=== PATIENT | female | born 1985 | race African-American/Black ===

== ENCOUNTER 2017-05-11 07:45 | Day surgery (SDC) | payer BC ==
[2017-05-08 16:14] VITALS: BMI 29.1
--- NOTE | 2017-05-11 08:42 | HP ---
History & Physical Update - History History: No Change - Physical Physical: No Change - Assessment Assessment: No Change - Plan Plan: No Change
[2017-05-11] MEDS ORDERED: oxyCODONE HCL 5 MG TABLET PO PRN (09:08)
[2017-05-11] MEDS ORDERED: ONDANSETRON 4 MG/2 ML VIAL IVPUSH PRN (09:08)
[2017-05-11] MEDS ORDERED: PROMETHAZINE HCL 25 MG/1 ML VIAL IVPUSH PRN (09:08)
[2017-05-11] MEDS ORDERED: LACTATED RINGERS SOLUTION 1,000 ML IV SCH (09:15)
[2017-05-11] MEDS ORDERED: MIDAZOLAM HCL 2 MG/2 ML SINGLE DOSE VIAL ONE ×2 (09:30)
[2017-05-11] MEDS ORDERED: PROPOFOL 20 ML ONE ×2 (09:34→09:35)
[2017-05-11] MEDS ORDERED: SUCCINYLCHOLINE CHLORIDE 200 MG/10 ML VIAL ONE (09:36)
[2017-05-11] MEDS ORDERED: KETOROLAC TROMETHAMINE 30 MG/1 ML VIAL ONE (09:47)
[2017-05-11] MEDS ORDERED: DEXAMETHASONE SOD PHOSPHATE 4 MG/1 ML VIAL ONE (09:47)
[2017-05-11] MEDS ORDERED: BUPIVACAINE HCL/PF 0.5% (5MG/ML) 10 ML VIAL IJ ONE (10:16)
--- NOTE | 2017-05-11 10:31 | OP ---
Operative Note - Note: Operative Date: 05/11/17 Pre-Operative Diagnosis: 6x8cm. soft tissue tumor over right upper arm , shoulder and anterior chest wall. Operation: Excision of 6x8 cm. soft tissue tumor on right anterior arm, and shoulder. Findings: 6x8cm. soft tissue tumor deep to the deep fascia. Post-Operative Diagnosis: Same as Pre-op Surgeon: Barbara Cee Anesthesia: General Specimens Removed: Soft tissue tumor right upper arm and shoulder. Estimated Blood Loss (mls): 2 Operative Report Dictated: Yes
[2017-05-11] MEDS ORDERED: oxyCODONE HCL 5 MG TABLET ONE (11:14)
--- NOTE | 2017-05-11 12:02 | OP ---
DATE OF OPERATION: 05/11/2017 PREOPERATIVE DIAGNOSIS: An 8 cm x 6 cm soft tissue tumor on the anterior aspect of the right arm and right shoulder. POSTOPERATIVE DIAGNOSIS: An 8 cm x 6 cm soft tissue tumor on the anterior aspect of the right arm and right shoulder. OPERATIVE PROCEDURE: Excision of 8 cm x 6 cm soft tissue tumor on the anterior aspect of the right arm and shoulder. SURGEON: Gay Rossi MD ANESTHESIA: General anesthesia. OPERATIVE DESCRIPTION: This 31-year-old soft tissue tumor, which is enlarging in size, over the anterior aspect of right upper arm and shoulder. Patient was brought in for excision of the lesion. She was given general anesthesia. The area was painted and draped. Time-out was called. A crease incision was made over the inferior aspect of the lesion along a skin crease. This was deepened through the skin and subcutaneous tissue and the deep fascia. The full encapsulated tumor was then identified. This was carefully from the rest of the structures. It was dumbbell shaped, and it was completely excised. It measured about 8 cm x 6 cm. Hemostasis was achieved. There was no bleeding. The specimen was sent to Pathology. The deep fascia was approximated with buried interrupted 3-0 Vicryl sutures, the subcutaneous fat was approximated with buried 4-0 Biosyn sutures in a subcuticular fashion and followed by a running suture of 4-0 Biosyn. Dermabond was applied to close the skin edges. Patient tolerated the procedure well and was sent from the operative suite in satisfactory and stable condition. Nette ROSSI/[id number]
[2017-05-11 12:42] VITALS: BP 107/66; PULSE 68; TEMP 97.8
--- NOTE | 2017-05-14 14:13 | PATH ---
Surgical Pathology Report Patient Name: NAYELI WOODALL [facility]. Rec. #: [id number] /Age/Gender: 1985 (Age: 31) / F Account: [id number] Location: [facility] Taken: 05/11/2017 Received: 05/11/2017 Reported: 05/14/2017 Physicians: Sloan Cee M.D. Specimen(s) Received RIGHT ARM AND ANTERIOR CHEST WALL SOFT TISSUE TUMOR Clinical History Right arm and anterior chest wall soft tissue tumor Final Diagnosis SOFT TISSUE, RIGHT ARM AND ANTERIOR CHEST, EXCISION: LIPOMA. Electronically Signed Donaldo Mercedes M.D. Gross Description Received in formalin labeled "right arm and anterior chest wall soft tissue tumor," is a 6.2 x 6.0 x 1.5 cm portion of yellow, lobulated adipose tissue. Sectioning reveals homogeneous yellow, smooth fat. No areas of hemorrhage or necrosis are identified. Meat And Poultry Inspector sections are submitted in 2 cassettes. /05/11/2017 saudi05/11/2017
== END 2017-05-11 12:15 | disposition home or self-care (01) ==
LOC: JASU-SURG 07:45
PROVIDERS: ATTEND Specialist
PROC: 0JBD0ZX Excision of Right Upper Arm Subcutaneous Tissue and Fascia, Open Approach, Diagnostic (ICD-10-PCS; principal; 2017-05-11 09:30)
DX: D21.11 Benign neoplasm of connective and other soft tissue of right upper limb, including shoulder (principal)
CPT/HCPCS: 88305-TC; 94760

== ENCOUNTER 2019-02-12 22:33 | Emergency (ER) | payer BC ==
[2019-02-12 22:40] VITALS: BMI 33.3
--- NOTE | 2019-02-12 23:54 | PDOC ---
*Physical Exam - Vital Signs Last Vital Signs Temp Pulse Resp BP Pulse Ox 97.8 F 75 18 133/84 100 02/12/19 22:37 02/12/19 22:37 02/12/19 22:37 02/12/19 22:37 02/12/19 22:37 ED Treatment Course - LABORATORY CBC & Chemistry Diagram: 02/13/19 00:25 02/13/19 00:25 Medical Decision Making - Medical Decision Making 02/12/19 23:54 Patient seen by the advanced practice provider under my direct supervision. Ancillary testing reviewed as necessary. I agree with plan as outlined by the advanced practice provider. *DC/Admit/Observation/Transfer Diagnosis at time of Disposition: Headache Qualifiers: Headache type: tension-type Headache chronicity pattern: acute headache Intractability: not intractable Qualified Code(s): G44.209 - Tension-type headache, unspecified, not intractable - Discharge Dispostion Condition at time of disposition: Fair - Referrals Referrals: Vivek Yuan MD [Staff Physician] - Mireya Oliveira MD [Primary Care Provider] - - Patient Instructions Additional Instructions: Take Tylenol or Motrin as needed for headaches. Keep a diary of all food to eat and activities performed prior to headaches starting. Make an appointment with her primary doctor for reevaluation within the next week. Return to emergency department for worsening headache, blurry vision, dizziness , nausea, vomiting or any other concerns. Thank you very much for for choosing us to provide emergent health care needs. - Post Discharge Activity
[2019-02-13] MEDS ORDERED: METOCLOPRAMIDE HCL INJECTION 10 MG/2 ML VIAL IVPUSH STA (00:03)
[2019-02-13] MEDS ORDERED: SODIUM CHLORIDE 1,000 ML IV ONE (00:03)
[2019-02-13] MEDS ORDERED: ACETAMINOPHEN 1000 MG/100 ML VIAL (NON FORMULARY) IVPB ONE (00:04)
--- NOTE | 2019-02-13 00:09 | PDOC ---
History of Present Illness - General Chief Complaint: Lightheaded Stated Complaint: DIZZINESS Time Seen by Provider: 02/12/19 23:51 History Source: Patient Exam Limitations: No Limitations - History of Present Illness Initial Comments: 02/13/19 00:06 HISTORY OF PRESENT ILLNESS: 33-year-old woman he denies medical history presents emergency department for evaluation headache which has been intermittent for the past 2-3 months with recurrence today at approximately 10: 30 PM. The patient sought out care of this time she began to experience some numbness and tingling to bilateral upper extremities which is now resolved. Patient denies any fevers, chills, chest pain, shortness of breath, blurry vision, nausea or vomiting. No recent travel or sick contacts. PAST MEDICAL HISTORY: Denies past medical history SURGICAL HISTORY: Denies ALLERGIES: No known drug allergies. Shellfish REVIEW OF SYSTEMS General/Constitutional: Denies fever or chills. Denies weakness, weight change. HEENT: Denies change in vision. Denies ear pain or discharge. Denies sore throat. Cardiovascular: Denies chest pain or shortness of breath. Respiratory: Denies cough, wheezing, or hemoptysis. Gastrointestinal: Denies nausea, vomiting, diarrhea or constipation. Denies rectal bleeding. Genitourinary: Denies dysuria, frequency, or change in urination. Musculoskeletal: Denies joint or muscle swelling or pain. Denies neck or back pain. Skin and breasts: Denies rash or easy bruising. Neurologic: see HPI Psychiatric: Denies depression or anxiety. Endocrine: Denies increased thirst. Denies abnormal weight change. Hematologic/Lymphatic: Denies anemia, easy bleeding, or history of blood clots. Allergic/Immunologic: Denies hives or skin allergy. Denies latex allergy. PHYSICAL EXAM General Appearance: Well-appearing, appropriately dressed. No apparent distress , no intoxication. HEENT: EOMI, PERRLA, normal ENT inspection, normal voice, TMs normal, pharynx normal. No conjunctival pallor. No photophobia, scleral icterus. Neck: Supple. Trachea midline. No tenderness, rigidity, carotid bruit, stridor , lymphadenopathy, or thyromegaly. Respiratory/Chest: Lungs CTAB. No shortness of breath, chest tenderness, respiratory distress, accessory muscle use. No crackles, rales, rhonchi, stridor , wheezing, dullness Cardiovascular: RRR. S1, S2. No JVD, murmur, bradycardia, tachycardia. Vascular Pulses: Dorsalis-Pedis (R): 2+, Dorsalis-Pedis (L): 2+ Gastrointestinal/Abdominal: Normal bowel sounds. Abdomen soft, non-distended. No tenderness or rebound tenderness. No organomegaly, pulsatile mass, guarding, hernia, hepatomegaly, splenomegaly. Lymphatic: No adenopathy, tenderness. Musculoskeletal/Extremities: Normal inspection. FROM of all extremities, normal capillary refill. Pelvis Stable. No CVA tenderness. No tenderness to extremities, pedal edema, swelling, erythema or deformity. Integumentary: Appropriate color, dry, warm. No cyanosis, erythema, jaundice or rash Neurologic: pct II-XII intact. Fully oriented, alert. Appropriate mood/affect. Motor strength 5/5. No appreciable EOM palsy, facial droop or sensory deficit. NIHSS-0. Performs rapid alternating movements without difficulty. (-)[place]. ( -)[place]. Past History - Past Medical History Allergies/Adverse Reactions: Allergies Allergy/AdvReac Type Severity Reaction Status Date / Time shellfish derived Allergy Hives Verified 02/12/19 22:40 Home Medications: Ambulatory Orders Calcium Phosphate Trib/Vit D3 [Calcium + Vitamin D3 Gummies] 1 each PO DAILY Multivit-Min/Iron Fum/Folic AC [Medyg-Pjrvjms-Rsypeuxk Tablet] 1 each PO DAILY 05/08/17 Anemia: No Asthma: No Cancer: No Cardiac Disorders: No CVA: No COPD: No CHF: No Dementia: No Diabetes: No GI Disorders: No Disorders: No HTN: No Hypercholesterolemia: No Liver Disease: No Seizures: No Thyroid Disease: No - Surgical History Gastric Stapling: Yes (SLEEVE) - Suicide/Smoking/Psychosocial Hx Smoking History: Never smoked Hx Alcohol Use: Yes (occsional) Substance Use Type: None Hx Substance Use Treatment: No *Physical Exam - Vital Signs Last Vital Signs Temp Pulse Resp BP Pulse Ox 97.8 F 75 18 133/84 100 02/12/19 22:37 02/12/19 22:37 02/12/19 22:37 02/12/19 22:37 02/12/19 22:37 Heart Score/ECG Review - History History: Slightly suspicious - Electrocardiogram EKG: Normal - Age Age: </= 45 - Risk Factors Based on the list above the patient has:: No risk factors known - Troponin Troponin: </= normal limit - Score Heart Score - Total: 0 - ECG Intrepretation Rhythm: Regular Rhythm - [place]: Normal ED Treatment Course - LABORATORY CBC & Chemistry Diagram: 02/13/19 00:25 02/13/19 00:25 Medical Decision Making - Medical Decision Making 02/13/19 00:09 A/P: 33-year-old woman with headache and bilateral upper extremity tingling Differential diagnosis includes but is not limited to migraines, CVA/TIA, anxiety, neoplasm, anemia, ophthalmologic etiology, ACS, arrhythmia EKG Labs Urine Normal saline 1 L bolus Reglan 10 mg IV Benadryl 25 mg IV Tylenol 1 g IV Toradol pending testing 02/13/19 01:49 Laboratory testing is notable for WBC of 3.5. Chemistries are unremarkable. Initial troponin is less than 0.02. EKG sinus rhythm rate of 81. Normal intervals present. Normal axis noted. No ischemic changes noted. Urinalysis is unremarkable. Patient reports she is currently pain-free. I'll discharge the patient home to follow-up with her primary doctor. I discussed the physical exam findings, ancillary test results and final diagnoses with the patient. I answered all of the patient's questions. The patient was satisfied with the care received and felt comfortable with the discharge plan and treatment plan. The patient will call their primary care physician within 24 hours to arrange follow-up and will return to the Emergency Department with any new, persistent or worsening symptoms. 02/13/19 02:21 *DC/Admit/Observation/Transfer Diagnosis at time of Disposition: Headache Qualifiers: Headache type: tension-type Headache chronicity pattern: acute headache Intractability: not intractable Qualified Code(s): G44.209 - Tension-type headache, unspecified, not intractable - Discharge Dispostion Condition at time of disposition: Fair Decision to Admit order: No - Referrals Referrals: Mireya Oliveira MD [Primary Care Provider] - Vivek Yuan MD [Staff Physician] - - Patient Instructions Additional Instructions: Take Tylenol or Motrin as needed for headaches. Keep a diary of all food to eat and activities performed prior to headaches starting. Make an appointment with her primary doctor for reevaluation within the next week. Return to emergency department for worsening headache, blurry vision, dizziness , nausea, vomiting or any other concerns. Thank you very much for for choosing us to provide emergent health care needs. - Post Discharge Activity
[2019-02-13] MEDS ORDERED: ACETAMINOPHEN INJECTION 100 ML IVPB ONE (00:12)
[2019-02-13] MEDS ORDERED: METOCLOPRAMIDE HCL INJECTION 10 MG/2 ML VIAL ONE (00:12)
[2019-02-13 00:42] LABS: BASO % 0.9 % (0-2.0); EOS % 1.6 % (0-4.5); HEMATOCRIT 35.2 % (32.4-45.2); HEMOGLOBIN 11.4 GM/dL (10.7-15.3); LYMPH % 44.1 % (8-40); MCHC 32.3 g/dl (32.0-36.0); MEAN CELL VOLUME 92.7 fl (80-96); MEAN PLT VOLUME 9.6 fl (7.5-11.1); MONO % 10.3 % (3.8-10.2); NEUT % 43.1 % (42.8-82.8); PLATELET COUNT 299 K/MM3 (134-434); RDW 17.6 % (11.6-15.6); WHITE BLOOD COUNT 3.5 K/mm3 (4.0-10.0)
[2019-02-13 01:13] LABS: ALBUMIN 3.8 g/dl (3.4-5.0); ALK PHOS 42 U/L (45-117); ANION GAP 5 MMOL/L (8-16); BILIRUBIN,TOTAL 1.1 mg/dL (0.2-1); BLOOD UREA NITROGEN 11.9 mg/dL (7-18); CALCIUM 8.7 mg/dL (8.5-10.1); CHLORIDE 108 mmol/L (98-107); CO2 26 mmol/L (21-32); CREATININE 0.7 mg/dL (0.55-1.3); GLUCOSE,RANDOM 104 mg/dL (74-106); HCG,QUALITATIVE URINE Negative; POTASSIUM 4.4 mmol/L (3.5-5.1); SGOT/AST 29 U/L (15-37); SGPT/ALT 19 U/L (13-61); SODIUM 139 mmol/L (136-145); TOT PROT 7.3 g/dl (6.4-8.2)
[2019-02-13 02:13] LABS: URINE APPEARANCE CLEAR; URINE BILIRUBIN NEGATIVE (NEGATIVE); URINE COLOR YELLOW; URINE GLUCOSE (UA) NEGATIVE (NEGATIVE); URINE KETONE 1+ (NEGATIVE); URINE LEUK ESTERASE NEGATIVE (NEGATIVE); URINE NITRITE NEGATIVE (NEGATIVE); URINE PROTEIN NEGATIVE (NEGATIVE)
[2019-02-13 03:27] VITALS: BP 109/66; PULSE 73; TEMP 97.8
--- NOTE | 2019-02-13 13:39 | EKG ---
Test Reason : Blood Pressure : / mmHG Vent. Rate : 081 BPM Atrial Rate : 081 BPM P-R Int : 156 ms QRS Dur : 088 ms QT Int : 408 ms P-R-T Axes : 067 070 056 degrees QTc Int : 473 ms NORMAL SINUS RHYTHM POSSIBLE LEFT ATRIAL ENLARGEMENT BORDERLINE ECG WHEN COMPARED WITH ECG OF 23-OCT-2014 17:48, QT HAS LENGTHENED Confirmed by MARLEEN ACKERMAN, PRANAV ([id number]) on 02/13/2019 1:38:53 PM Referred By: Confirmed By:PRANAV HAWLEY MD
== END 2019-02-13 02:35 | disposition home or self-care (01) ==
LOC: JER 22:33
PROC: 3E033NZ Introduction of Analgesics, Hypnotics, Sedatives into Peripheral Vein, Percutaneous Approach (ICD-10-PCS; principal; 2019-02-12)
PROC: 3E033GC Introduction of Other Therapeutic Substance into Peripheral Vein, Percutaneous Approach (ICD-10-PCS; 2019-02-12)
PROC: 3E033GC Introduction of Other Therapeutic Substance into Peripheral Vein, Percutaneous Approach (ICD-10-PCS; 2019-02-12)
DX: G44.209 Tension-type headache, unspecified, not intractable (principal)
CPT/HCPCS: 36415; 80053; 81003; 82550; 82553; 84484; 84703; 85025; 87086; 93005; 93010; 99282-25; J0131; J7030

== ENCOUNTER 2019-06-18 14:11 | Emergency (ER) | payer BC ==
--- NOTE | 2019-06-18 14:24 | PDOC ---
Rapid Medical Evaluation Time Seen by Provider: 06/18/19 14:22 Medical Evaluation: Allergies Allergy/AdvReac Type Severity Reaction Status Date / Time shellfish derived Allergy Hives Verified 02/12/19 22:40 06/18/19 14:22 Pt c/o: intermittent sob and dizziness x 1 week, no other complaints, 19 weeks , hx of anemia , takes iron pills Pt on brief exam: lcta, vss Pt ordered for: cbc, comp, ua, orthostatic vs Pt to proceed to the ED Discharge Disposition - Diagnosis SOB (shortness of breath), Anemia, UTI (urinary tract infection) during - Discharge Dispostion Disposition: HOME Condition at time of disposition: Improved - Prescriptions Prescriptions: Nitrofurantoin Monohyd/M-Cryst [Macrobid -] 100 mg PO BID #14 capsule - Referrals Referrals: Mireya Oliveira MD [Primary Care Provider] - - Patient Instructions Printed Discharge Instructions: DI for Urinary Tract Infection (UTI), Anemia in Additional Instructions: You came into the hospital with lightheadedness and shortness of breath. You have a urinary tract infection. I have sent a prescription to your pharmacy for an antibiotic, take as advised on label. Do not stop early even if you are feeling better. Take all pills. Your blood test shows that you have anemia. Your hemoglobin was 10.0. Let your OBGYN know about your level of anemia. Please continue to take your vitamins as prescribed. Please follow up with your CUSTOM STUDIO COORDINATOR to monitor your within 3 days. Your care is not complete until you follow up. Return to the Emergency Department for increasing shortness of breath, increasing weakness, vomiting, fever, coughing up blood, chest pain, passing out or any other new, worsening or concerning symptoms. - Post Discharge Activity Work/School Note: Back to Work
[2019-06-18 14:25] VITALS: TEMP 98.1; BMI 36.2
[2019-06-18 15:34] LABS: BASO % 0.5 % (0-2.0); EOS % 1.2 % (0-4.5); HEMATOCRIT 30.7 % (32.4-45.2); LYMPH % 27.4 % (8-40); MCH 32.1 pg (25.7-33.7); MCHC 32.6 g/dl (32.0-36.0); MEAN CELL VOLUME 98.5 fl (80-96); MEAN PLT VOLUME 8.8 fl (7.5-11.1); MONO % 11.2 % (3.8-10.2); NEUT % 59.7 % (42.8-82.8); PLATELET COUNT 242 K/MM3 (134-434); RBC 3.12 M/mm3 (3.60-5.2); RDW 14.2 % (11.6-15.6); WHITE BLOOD COUNT 5.6 K/mm3 (4.0-10.0)
[2019-06-18 15:37] LABS: EPI CELLS 5.4 /HPF (0-5/HPF); HYALINE CASTS 13 /lpf (0-8); PH,URINE 7.5 (5.0-8.0); URINE APPEARANCE CLOUDY; URINE BACTERIA 616.2 /hpf (NEGATIVE); URINE BILIRUBIN NEGATIVE (NEGATIVE); URINE COLOR YELLOW; URINE GLUCOSE (UA) NEGATIVE (NEGATIVE); URINE KETONE NEGATIVE (NEGATIVE); URINE LEUK ESTERASE 3+ (NEGATIVE); URINE NITRITE NEGATIVE (NEGATIVE); URINE PROTEIN NEGATIVE (NEGATIVE); URINE RBC 1 /hpf (0-4); URINE WBC 67 /hpf (0-5)
[2019-06-18 16:00] LABS: ALBUMIN 2.8 g/dl (3.4-5.0); BILIRUBIN,TOTAL 0.4 mg/dL (0.2-1); CALCIUM 8.5 mg/dL (8.5-10.1); CREATININE 0.4 mg/dL (0.55-1.3); POTASSIUM 4.3 mmol/L (3.5-5.1)
[2019-06-18 16:35] LABS: MAGNESIUM 2.1 mg/dL (1.8-2.4)
--- NOTE | 2019-06-18 16:52 | PDOC ---
History of Present Illness - General Chief Complaint: Lightheaded Stated Complaint: 19 WK /SHORTNESS OF BREATH Time Seen by Provider: 06/18/19 14:22 History Source: Patient - History of Present Illness Initial Comments: 06/18/19 16:45 33 yo F PMH of anemia presents to Ed with new onset intermittent SOB, palpitations, accompanying her dizziness. pt is , currently 19w , LMP January 31, 2019. Pt states she usually gets intermittent dizziness when she stands or certain movements. Since last week, she has intermittent dizziness where she also feels short of breath and palpitations, she denies chest tightness. she denies pain. denies difficulty swallowing or throat swelling. denies fevers, chills, nausea, vomiting. denies recent travel. denies vaginal bleeding. Past History - Travel Traveled outside of the country in the last 30 days: No - Past Medical History Allergies/Adverse Reactions: Allergies Allergy/AdvReac Type Severity Reaction Status Date / Time shellfish derived Allergy Hives Verified 06/18/19 14:25 Home Medications: Ambulatory Orders Pnv No.95/Ferrous Fum/Folic AC [ [place]] 1 tab PO DAILY 06/18/19 Anemia: Yes Asthma: No Cancer: No Cardiac Disorders: No CVA: No COPD: No CHF: No Dementia: No Diabetes: No GI Disorders: No Disorders: No HTN: No Hypercholesterolemia: No Liver Disease: No Seizures: No Thyroid Disease: No - Surgical History Gastric Stapling: Yes (SLEEVE) - Reproductive History Is Patient Now?: Yes (19weeks) (#): 4 Para: 1 - Psycho Social/Smoking Cessation Hx Smoking History: Never smoked Information on smoking cessation initiated: No Hx Alcohol Use: No Drug/Substance Use Hx: No Substance Use Type: None Hx Substance Use Treatment: No Review of Systems - Review of Systems Able to Perform ROS?: Yes Constitutional: No: Chills, Fever HEENTM: No: Throat Pain, Throat Swelling, Difficulty Swallowing Respiratory: Yes: Shortness of Breath Cardiac (ROS): Yes: Lightheadedness, Palpitations. No: Chest Pain, Edema, Syncope, Chest Tightness ABD/GI: Yes: Constipated. No: Diarrhea, Difficulty Swallowing, Nausea, Vomiting : Yes: Discharge, Urgency. No: Burning, Dysuria, Hematuria Neurological: Yes: Headache, Dizziness Hematologic/Lymphatic: Yes: Anemia *Physical Exam - Vital Signs Last Vital Signs Temp Pulse Resp BP Pulse Ox 98.1 F 82 19 111/52 L 100 06/18/19 14:23 06/18/19 14:23 06/18/19 14:23 06/18/19 14:23 06/18/19 14:23 - Physical Exam General Appearance: Yes: Nourished, Appropriately Dressed HEENT: positive: Pharyngeal Erythema, Tonsillar Erythema (also swollen b/l ). negative: Muffled/Hoarse voice Neck: positive: Lymphadenopathy (L) (submandibular ) Respiratory/Chest: positive: Lungs Clear, Normal Breath Sounds. negative: Accessory Muscle Use Cardiovascular: positive: Regular Rhythm, Regular Rate, S1, S2, JVD Gastrointestinal/Abdominal: positive: Soft, Decreased BS. negative: Tender Extremity: positive: Swelling (L LE ). negative: Calf Tenderness, Erythema ED Treatment Course - LABORATORY CBC & Chemistry Diagram: 06/18/19 15:00 06/18/19 15:00 - ADDITIONAL ORDERS Additional order review: Laboratory Results 06/18/19 06/18/19 15:00 15:00 Sodium 138 Potassium 4.3 Chloride 107 Carbon Dioxide 26 Anion Gap 5 L BUN 8.0 Creatinine 0.4 L Est GFR (CKD-EPI)AfAm 156.40 Est GFR (CKD-EPI)NonAf 134.94 Random Glucose 82 Calcium 8.5 Phosphorus 4.0 Magnesium 2.1 Total Bilirubin 0.4 AST 19 ALT 18 Alkaline Phosphatase 34 L Total Protein 6.0 L Albumin 2.8 L Urine Color Yellow Urine Appearance Cloudy Urine pH 7.5 D Ur Specific [place] 1.020 Urine Protein Negative Urine Glucose (UA) Negative Urine Ketones Negative Urine Blood Negative Urine Nitrite Negative Urine Bilirubin Negative Urine Urobilinogen 1.0 Ur Leukocyte Esterase 3+ H Urine WBC (Auto) 67 Urine RBC (Auto) 1 Urine Casts (Auto) 13 U Epithel Cells (Auto) 5.4 Urine Bacteria (Auto) 616.2 06/18/19 15:00 RBC 3.12 L MCV 98.5 H MCHC 32.6 RDW 14.2 D MPV 8.8 Neutrophils % 59.7 D Lymphocytes % 27.4 D Monocytes % 11.2 H Eosinophils % 1.2 Basophils % 0.5 - RADIOLOGY Radiology Studies Ordered: Category Date Time Status DUPLEX VASCUL US-1 LEG [US] Stat Ultrasound 06/18/19 15:58 Taken Medical Decision Making - Medical Decision Making 06/18/19 16:56 33 yo presenting to Ed w/ intermittent sob, palpitations, dizziness -r/o anemia -r/o PE -likely anxiety, pt states that in prior had to avoid public areas and crowded spaces as would get similar symptoms. todays event occurred when she was in crowded room. currently pt asymptomatic -cbc, cmp -ekg -asymmetric leg swelling, duplex l LE to r/o dvt. D dimer -UA reveals + Leuk est, + for UTI 06/18/19 16:59 -CBC shows mild anemia : -glucose wnl 06/18/19 15:00 06/18/19 17:01 -duplex neg for DVT Discharge - Discharge Information Problems reviewed: Yes Clinical Impression/Diagnosis: SOB (shortness of breath) - Follow up/Referral Referrals: Mireya Oliveira MD [Primary Care Provider] - - Patient Discharge Instructions Patient Printed Discharge Instructions: DI for Shortness of Breath, DI for Anxiety -- Adult, DI for Dizziness-Nonvertigo Additional Instructions: You came into the hospital with dizziness and shortness of breath. You had blood tests and an ultrasound of your leg for blood clot. Your blood test shows that you have anemia. Your hemoglobin is 10.0 Please continue to take your vitamins as prescribed. Please follow up with your VAT TENDER to monitor your . If you continue to have these symptoms, or if your symptoms worsen please return to the ED. if you continue to have shortness of breath, palpitations, fever , chills, vaginal bleeding, please return to the ER. - Post Discharge Activity
[2019-06-18 17:16] LABS: INR 0.95 (0.83-1.09); PROTHROMBIN TIME (PATIENT) 11.2 SEC (9.7-13.0)
--- NOTE | 2019-06-18 17:50 | PDOC ---
Attending Attestation - Resident Resident Name: Patrizia Crane - ED Attending Attestation I have performed the following: I have examined & evaluated the patient, The case was reviewed & discussed with the resident, I agree w/resident's findings & plan, Exceptions are as noted - HPI HPI: 06/18/19 17:45 33 F , @ 19 weeks, with no PMH presents to ED with intermittent SOB. Pt states that for the past 5 days, she has been having transient episodes of SOB. She states that these episodes come on randomly, not triggered by anything. They last a few minutes at a time before resolving spontaneously. Pt notes that she also has palpitations but no chest pain associated with it. Pt also notes that her L leg has been swollen but only noticed it today. - Physicial Exam PE: 06/18/19 18:07 "GENERAL: Awake, alert, and fully oriented, in no acute distress. HEAD: No signs of trauma EYES: PERRLA, EOMI, sclera anicteric, conjunctiva clear ENT: Auricles normal inspection, hearing grossly normal, nares patent, oropharynx clear without exudates. Moist mucosa NECK: Nontender, no stepoffs, Normal ROM, supple, no lymphadenopathy, JVD, or masses LUNGS: Breath sounds equal, clear to auscultation bilaterally. No wheezes, and no crackles HEART: Regular rate and rhythm, normal S1 and S2, no murmurs, rubs or gallops ABDOMEN: Soft, nontender, normoactive bowel sounds. No guarding, no rebound. No masses EXTREMITIES: +1 edema LLE NEUROLOGICAL: Cranial nerves II through XII intact. 5/5 strength and sensation in all extremities, Normal speech, normal gait, normal cerebellar function SKIN: Warm, Dry, normal turgor, no rashes or lesions noted. - Medical Decision Making 06/18/19 18:12 33 F with intermittent SOB, also found to have asymmetric LLE swelling. Will need to r/o PE. - Labs, ddimer - LLE US 06/18/19 18:13 UA + for UTI, pt started on macrobid Labs notable for dimer 800 LLE US negative for DVT I discussed the results with the patient, as well as the risks/benefits of obtaining a CT during . I also explained to pt that a diagnosis of PE is unlikely but potentially life threatening if missed. Pt consents to obtaining CTA to r/o PE. Pt signed out to Dr. Salas at 7PM, pending CTA and re-evaluation
[2019-06-18] MEDS ORDERED: NITROFURANTOIN MACROCRYSTAL 50 MG CAPSULE (FP) PO SCH (19:15)
[2019-06-18] MEDS ORDERED: SODIUM CHLORIDE 1,000 ML IV STA (19:25)
--- NOTE | 2019-06-18 19:25 | PDOC ---
*Physical Exam - Vital Signs Last Vital Signs Temp Pulse Resp BP Pulse Ox 98.1 F 70 19 97/56 L 100 06/18/19 14:23 06/18/19 18:39 06/18/19 14:23 06/18/19 18:39 06/18/19 18:39 ED Treatment Course - LABORATORY CBC & Chemistry Diagram: 06/18/19 15:00 06/18/19 15:00 Medical Decision Making - Medical Decision Making Pt signed out to me by prior Resident, see prior note. 33 year old female with PMH anemia, currently 19 weeks presented to ED for intermittent SOB/lightheadedness/palpitations x1 week. Physical examination revealed unilateral left sided leg swelling. It was reported that the US was negative for DVT, but d-dimer was positive. Risk/benefits of CTA vs untreated PE discussed with pt by prior resident, and pt signed consent for CTA. Pt is pending CTA. EKG showed regular sinus rhythm without ST changes. Initial Vital Signs Temp Pulse Resp BP Pulse Ox 98.1 F 82 19 111/52 L 100 06/18/19 14:23 06/18/19 14:23 06/18/19 14:23 06/18/19 14:23 06/18/19 14:23 ED Medications Discontinued Medications Generic Name Dose Route Start Last Admin Trade Name Freq PRN Reason Stop Dose Admin Sodium Chloride 1,000 mls @ 1,000 mls/hr 06/18/19 19:25 06/18/19 19:43 Normal Saline - IV 06/18/19 20:24 1,000 mls/hr ASDIR STA Administration Vital Signs Temperature 98.1 F 06/18/19 14:23 Pulse Rate 70 06/18/19 18:39 Respiratory Rate 19 06/18/19 14:23 Blood Pressure 97/56 L 06/18/19 18:39 O2 Sat by Pulse Oximetry (%) 100 06/18/19 18:39 CBC WBC 5.6 K/mm3 (4.0-10.0) 06/18/19 15:00 RBC 3.12 M/mm3 (3.60-5.2) L 06/18/19 15:00 Hgb 10.0 GM/dL (10.7-15.3) L 06/18/19 15:00 Hct 30.7 % (32.4-45.2) L 06/18/19 15:00 MCV 98.5 fl (80-96) H 06/18/19 15:00 MCH 32.1 pg (25.7-33.7) 06/18/19 15:00 MCHC 32.6 g/dl (32.0-36.0) 06/18/19 15:00 RDW 14.2 % (11.6-15.6) D 06/18/19 15:00 Plt Count 242 K/MM3 (134-434) 06/18/19 15:00 MPV 8.8 fl (7.5-11.1) 06/18/19 15:00 Absolute Neuts (auto) 3.4 K/mm3 (1.5-8.0) 06/18/19 15:00 Neutrophils % 59.7 % (42.8-82.8) D 06/18/19 15:00 Lymphocytes % 27.4 % (8-40) D 06/18/19 15:00 Monocytes % 11.2 % (3.8-10.2) H 06/18/19 15:00 Eosinophils % 1.2 % (0-4.5) 06/18/19 15:00 Basophils % 0.5 % (0-2.0) 06/18/19 15:00 Nucleated RBC % 0 % (0-0) 06/18/19 15:00 CMP Sodium 138 mmol/L (136-145) 06/18/19 15:00 Potassium 4.3 mmol/L (3.5-5.1) 06/18/19 15:00 Chloride 107 mmol/L (98-107) 06/18/19 15:00 Carbon Dioxide 26 mmol/L (21-32) 06/18/19 15:00 Anion Gap 5 MMOL/L (8-16) L 06/18/19 15:00 BUN 8.0 mg/dL (7-18) 06/18/19 15:00 Creatinine 0.4 mg/dL (0.55-1.3) L 06/18/19 15:00 Est GFR (CKD-EPI)AfAm 156.40 06/18/19 15:00 Est GFR (CKD-EPI)NonAf 134.94 06/18/19 15:00 Random Glucose 82 mg/dL (74-106) 06/18/19 15:00 Calcium 8.5 mg/dL (8.5-10.1) 06/18/19 15:00 Phosphorus 4.0 mg/dL (2.5-4.9) 06/18/19 15:00 Magnesium 2.1 mg/dL (1.8-2.4) 06/18/19 15:00 Total Bilirubin 0.4 mg/dL (0.2-1) 06/18/19 15:00 AST 19 U/L (15-37) 06/18/19 15:00 ALT 18 U/L (13-61) 06/18/19 15:00 Alkaline Phosphatase 34 U/L (45-117) L 06/18/19 15:00 Creatine Kinase 132 U/L (26-192) 06/18/19 16:50 Troponin I < 0.02 ng/ml (0.00-0.05) 06/18/19 16:50 Total Protein 6.0 g/dl (6.4-8.2) L 06/18/19 15:00 Albumin 2.8 g/dl (3.4-5.0) L 06/18/19 15:00 INR, PTT INR 0.95 (0.83-1.09) 06/18/19 16:[address] PE study. 06/18/19 21:42 CT report: Name: [facility] DEPARTMENT OF RADIOLOGY Phys: Robbie Pierre MD : 11/1985 Age: 33 Sex: F [facility] Acct: [id number] Loc: [address] Exam Date: 06/18/19 Status: [place] [address] Unit Number: [id number] EXAM#: TYPE/EXAM: RESULT: [id number] CT/CHEST CTA HISTORY PROVIDED: Rule out PE. TECHNIQUE: Sequential axial images were obtained from the thoracic inlet through the domes of the diaphragm following the administration of intravenous contrast material. CTA pulmonary embolism protocol was utilized, including coronal and oblique coronal MIP images. There is adequate opacification of the central pulmonary vasculature with no filling defects suspicious for pulmonary embolism. The lung alvarez are free of pulmonary masses, areas of acute consolidation or pleural effusions. No mediastinal masses, fluid collections or lymphadenopathy are identified. The heart is not enlarged. There is no evidence of thoracic aortic aneurysm or dissection. Evaluation of the upper abdomen demonstrates no acute abnormalities. IMPRESSION: No evidence of pulmonary embolism or acute pathology within the chest. Reported By: Gil Colon MD 06/18/19205406/18/19 21:47 Results discussed with patient. Pt provided with copy of CTA report. She expressed understanding. Pt advised to F/U with OBGYN promptly. She agreed with plan for care. Dispo: Discharged. Discharge - Discharge Information Problems reviewed: Yes Clinical Impression/Diagnosis: SOB (shortness of breath), Anemia, UTI (urinary tract infection) during Condition: Improved Disposition: HOME - Additional Discharge Information Prescriptions: Nitrofurantoin Monohyd/M-Cryst [Macrobid -] 100 mg PO BID #14 capsule - Follow up/Referral Referrals: Mireya Oliveira MD [Primary Care Provider] - - Patient Discharge Instructions Patient Printed Discharge Instructions: DI for Urinary Tract Infection (UTI), Anemia in Additional Instructions: You came into the hospital with lightheadedness and shortness of breath. You have a urinary tract infection. I have sent a prescription to your pharmacy for an antibiotic, take as advised on label. Do not stop early even if you are feeling better. Take all pills. Your blood test shows that you have anemia. Your hemoglobin was 10.0. Let your OBGYN know about your level of anemia. Please continue to take your vitamins as prescribed. Please follow up with your IT COORDINATOR to monitor your within 3 days. Your care is not complete until you follow up. Return to the Emergency Department for increasing shortness of breath, increasing weakness, vomiting, fever, coughing up blood, chest pain, passing out or any other new, worsening or concerning symptoms. - Post Discharge Activity Work/Back to School Note: Back to Work
[2019-06-18] MEDS ORDERED: NITROFURANTOIN MACROCRYSTAL 50 MG CAPSULE (FP) ONE (19:29)
[2019-06-19 03:42] VITALS: BP 97/64; PULSE 73
--- NOTE | 2019-06-19 12:23 | EKG ---
Test Reason : Blood Pressure : / mmHG Vent. Rate : 079 BPM Atrial Rate : 079 BPM P-R Int : 140 ms QRS Dur : 078 ms QT Int : 366 ms P-R-T Axes : 028 042 027 degrees QTc Int : 419 ms NORMAL SINUS RHYTHM LOW VOLTAGE QRS BORDERLINE ECG WHEN COMPARED WITH ECG OF 12-FEB-2019 22:34, QT HAS SHORTENED Confirmed by PRANAV HAWLEY MD ([id number]) on 06/19/2019 12:23:15 PM Referred By: Confirmed By:PRANAV HAWLEY MD
== END 2019-06-18 22:13 | disposition home or self-care (01) ==
LOC: JER 14:11
PROC: 3E0337Z Introduction of Electrolytic and Water Balance Substance into Peripheral Vein, Percutaneous Approach (ICD-10-PCS; principal; 2019-06-18)
DX: R06.02 Shortness of breath (principal); Z91.013 Allergy to seafood; D64.9 Anemia, unspecified; Z98.84 Bariatric surgery status
CPT/HCPCS: 36415; 71275-TC; 80053; 81003; 82550; 83735; 84100; 84484; 85025; 85379; 85610; 85730; 93005; 93010; 93971-TC; 99284-25; J7030

== ENCOUNTER 2019-10-26 04:45 | Inpatient (IN) | payer BC ==
[2019-10-26 07:05] VITALS: BMI 39.1
[2019-10-26 07:22] LABS: BASO % 0.7 % (0-2.0); HEMATOCRIT 31.3 % (32.4-45.2); HEMOGLOBIN 10.5 GM/dL (10.7-15.3); LYMPH % 24.7 % (8-40); MCH 31.7 pg (25.7-33.7); MCHC 33.7 g/dl (32.0-36.0); MEAN CELL VOLUME 94.2 fl (80-96); MEAN PLT VOLUME 9.2 fl (7.5-11.1); MONO % 10.5 % (3.8-10.2); NEUT % 63.1 % (42.8-82.8); PLATELET COUNT 220 K/MM3 (134-434); RBC 3.32 M/mm3 (3.60-5.2); WHITE BLOOD COUNT 5.3 K/mm3 (4.0-10.0)
[2019-10-26 07:33] LABS: INR 0.88 (0.83-1.09); PROTHROMBIN TIME (PATIENT) 10.4 SEC (9.7-13.0)
[2019-10-26 07:36] LABS: ACTIVATED PTT 32.5 SECONDS (25.2-36.5)
[2019-10-26 07:46] LABS: BLOOD UREA NITROGEN 5.3 mg/dL (7-18); CALCIUM 7.7 mg/dL (8.5-10.1); CREATININE 0.5 mg/dL (0.55-1.3); POTASSIUM 3.7 mmol/L (3.5-5.1)
--- NOTE | 2019-10-26 08:07 | HP ---
Past Medical History - Admission Chief Complaint: Labor pain History of Present Illness: 34 yo @ 38 weeks gestation, EDC 11/07/19, admitted for labor pain. Upon admission she was 4cm dilated with intact membrane. History Source: Patient Limitations to Obtaining History: No Limitations - Past Medical History ...: 2 ...Para: 1 ...Term: 1 ...EDC by Sono: 11/07/19 - Past Surgical History Past Surgical History: Yes: None Hx Myomectomy: No Hx Transabdominal Cerclage: No - Smoking History Smoking history: Never smoked - Alcohol/Substance Use Hx Alcohol Use: No - Social History Usual Living Arrangement: Yes: With Significant Other History of Recent Travel: No Home Medications - Allergies Allergies/Adverse Reactions: Allergies Allergy/AdvReac Type Severity Reaction Status Date / Time shellfish derived Allergy Hives Verified 10/26/19 05:29 - Home Medications Home Medications: Ambulatory Orders Ferrous Sulfate 325 mg PO DAILY 10/26/19 Pnv No.95/Ferrous Fum/Folic AC [ Vitamin Tablet] 1 each PO DAILY 10/26/19 Family Medical History Family History: Unremarkable Review of Systems - Review of Systems Constitutional: reports: No Symptoms Eyes: reports: No Symptoms HENT: reports: No Symptoms Neck: reports: No Symptoms Cardiovascular: reports: No Symptoms Respiratory: reports: No Symptoms Gastrointestinal: reports: No Symptoms Genitourinary: reports: Pain Breasts: reports: No Symptoms Reported Musculoskeletal: reports: No Symptoms Integumentary: reports: No Symptoms Neurological: reports: No Symptoms Endocrine: reports: No Symptoms Hematology/Lymphatic: reports: No Symptoms Psychiatric: reports: No Symptoms Pain Intensity: 5 Physical Exam - Maternity Vital Signs: Vital Signs Temperature 98.0 F 10/26/19 07:00 Pulse Rate 70 10/26/19 07:00 Respiratory Rate 20 10/26/19 07:00 Blood Pressure 102/81 10/26/19 07:00 O2 Sat by Pulse Oximetry (%) Constitutional: Yes: Well Nourished Eyes: Yes: Conjunctiva Clear HENT: Yes: Atraumatic Neck: Yes: Supple Cardiovascular: Yes: Regular Rate and Rhythm Lungs: Clear to auscultation - Abdominal Exam/OB Number of Fetuses: Single Presentation: Vertex Contractions: Yes Intensity: Mild - Vaginal Exam/OB Vaginal Bleediing: Light Dilatation (cm): 4 Effacement (%): 70 Amniotic Membrane Status: Intact Station: -2 - Physical Exam Musculoskeletal: Yes: WNL Extremities: Yes: WNL ...Motor Strength: WNL Psychiatric: Yes: Alert, Oriented - Labs Lab Results: CBC, BMP 10/26/19 07:10 10/26/19 07:10 Problem List - Problems (1) 38 weeks gestation of Problems reviewed: Yes Code(s): Z3A.38 - 38 WEEKS GESTATION OF (2) Pain during labor Problems reviewed: Yes Code(s): O99.89 - OTH DISEASES AND CONDITIONS COMPL PREG/CHLDBRTH; R52 - PAIN, UNSPECIFIED Assessment/Plan 38 weeks gestation Pain in labor Admit to L&D Anticipate
[2019-10-26] MEDS ORDERED: BUTORPHANOL TARTRATE 1 MG/ML VIAL IVPUSH PRN (08:08)
[2019-10-26] MEDS ORDERED: PROMETHAZINE HCL 25 MG/1 ML VIAL IVPB PRN (08:08)
[2019-10-26] MEDS ORDERED: DEXTROSE 5%-LACTATED RINGERS 1,000 ML IV SCH (08:15)
[2019-10-26] MEDS ORDERED: FENTANYL/BUPIVACAINE/NS/PF - PCEA - 50 ML DISP.SYRIN EP ONE (10:29)
[2019-10-26] MEDS ORDERED: LIDOCAINE HCL 1% PRESERVATIVE FREE - 30ML VIAL ONE (12:35)
[2019-10-26] MEDS ORDERED: OXYTOCIN 20 UNITS in 0.9% NS 20 UNIT/1,000 ML INFUS.BAG IV ONE (12:35)
[2019-10-26] MEDS ORDERED: NALOXONE HCL 0.4 MG/ML VIAL IVPUSH PRN (12:43)
[2019-10-26] MEDS ORDERED: FENTANYL/BUPIVACAINE/NS/PF - PCEA - 50 ML DISP.SYRIN EP SCH (12:45)
[2019-10-26] MEDS ORDERED: METHYLERGONOVINE MALEATE 0.2 MG/1 ML AMP IM PRN (13:08)
[2019-10-26] MEDS ORDERED: BENZOCAINE 20% 57 GM BOTTLE TP PRN (13:08)
[2019-10-26] MEDS ORDERED: BISACODYL 10 MG SUPP.RECT RC PRN (13:08)
[2019-10-26] MEDS ORDERED: WITCH HAZEL 50% (TUCKS) 40 PAD/JAR PAD TP PRN (13:08)
[2019-10-26] MEDS ORDERED: BENZOCAINE 28 GM HEMORRHOIDAL OINTMENT TP PRN (13:08)
--- NOTE | 2019-10-26 13:13 | PN ---
Delivery - Delivery Vaginal Delivery: Spontaneous Type of Anesthesia: Epidural Episiotomy/Laceration: 1st degree EBL (cc): 400 Delivery, Single - Bowler Feeding Plan Initial Plan: Elected not to breastfeed exclusively throughout hospitalization Remarks - Remarks Remarks: Normal spontaneous vaginal delivery of a live infant boy over first degree laceration. Nose / oropharynx suctioned @ perineum. Nuchal cord x1 clamped and cut. Baby handed to nurse. Placenta expelled spontaneously intact. Laceration repaired with 2.0 biosyn. Mother in stable condition.
[2019-10-26] MEDS ORDERED: OXYTOCIN 20 UNITS in 0.9% NS 20 UNIT/1,000 ML INFUS.BAG IV SCH (13:15)
[2019-10-26] MEDS ORDERED: ELECTROLYTE-148 SOLN 1,000 ML IV SCH (14:15)
[2019-10-26] MEDS: ACETAMINOPHEN 325 MG TABLET (FP) PO PRN (18:13)
[2019-10-26] MEDS: IBUPROFEN 600 MG TABLET (FP) PO PRN (18:14)
[2019-10-26] MEDS: FERROUS SO4 325 MG TABLET (FP) PO SCH (21:49)
[2019-10-27] MEDS: ACETAMINOPHEN 325 MG TABLET (FP) PO PRN ×2 (05:23→13:59)
[2019-10-27] MEDS: IBUPROFEN 600 MG TABLET (FP) PO PRN ×2 (05:23→13:59)
[2019-10-27 08:23] LABS: BASO % 0.2 % (0-2.0); EOS % 1.2 % (0-4.5); HEMOGLOBIN 9.1 GM/dL (10.7-15.3); LYMPH % 17.5 % (8-40); MCH 31.7 pg (25.7-33.7); MCHC 33.7 g/dl (32.0-36.0); MEAN CELL VOLUME 94.2 fl (80-96); MEAN PLT VOLUME 9.3 fl (7.5-11.1); MONO % 7.1 % (3.8-10.2); PLATELET COUNT 206 K/MM3 (134-434); RBC 2.87 M/mm3 (3.60-5.2); RDW 15.5 % (11.6-15.6)
--- NOTE | 2019-10-27 08:56 | PN ---
Post Progress Note - Subjective Subjective: 34 yo Para 2 status post vaginal delivery, seen and evaluated. Doing well. Post Day: 1 Type of Delivery: Vital Signs: Vital Signs Temperature 98.2 F 10/27/19 06:00 Pulse Rate 70 10/27/19 06:00 Respiratory Rate 20 10/27/19 06:00 Blood Pressure 126/82 10/27/19 06:00 O2 Sat by Pulse Oximetry (%) 100 10/26/19 21:00 Breast Exam: Yes: Soft Uterus: Yes: Fundus Firm Abdomen/GI: Yes: Abdomen soft, Tolerating PO Lochia: Yes: Rubra Lochia, amount: Moderate Extremities: Yes: Calves non-tender Perineum: Yes: Laceration (healing) Activity: Ambulating - Labs Labs: CBC WBC 7.0 K/mm3 (4.0-10.0) 10/27/19 07:30 RBC 2.87 M/mm3 (3.60-5.2) L 10/27/19 07:30 Hgb 9.1 GM/dL (10.7-15.3) L 10/27/19 07:30 Hct 27.0 % (32.4-45.2) L 10/27/19 07:30 MCV 94.2 fl (80-96) 10/27/19 07:30 MCH 31.7 pg (25.7-33.7) 10/27/19 07:30 MCHC 33.7 g/dl (32.0-36.0) 10/27/19 07:30 RDW 15.5 % (11.6-15.6) 10/27/19 07:30 Plt Count 206 K/MM3 (134-434) 10/27/19 07:30 MPV 9.3 fl (7.5-11.1) 10/27/19 07:30 Absolute Neuts (auto) 5.2 K/mm3 (1.5-8.0) 10/27/19 07:30 Neutrophils % 74.0 % (42.8-82.8) 10/27/19 07:30 Lymphocytes % 17.5 % (8-40) D 10/27/19 07:30 Monocytes % 7.1 % (3.8-10.2) 10/27/19 07:30 Eosinophils % 1.2 % (0-4.5) 10/27/19 07:30 Basophils % 0.2 % (0-2.0) 10/27/19 07:30 Nucleated RBC % 0 % (0-0) 10/27/19 07:30 Problem List - Problems (1) 38 weeks gestation of Code(s): Z3A.38 - 38 WEEKS GESTATION OF (2) Pain during labor Code(s): O99.89 - OTH DISEASES AND CONDITIONS COMPL PREG/CHLDBRTH; R52 - PAIN, UNSPECIFIED (3) Status post normal vaginal delivery Code(s): OJD8804 - Assessment/Plan Status post vaginal delivery Stable Continue routine care
[2019-10-27 09:22] LABS: POC NITRAZINE NEG
[2019-10-27] MEDS: FERROUS SO4 325 MG TABLET (FP) PO SCH ×2 (09:34→22:44)
[2019-10-27] MEDS: PRENATAL VITAMINS W/ FOLIC ACID TABLET (FP) PO SCH (09:34)
[2019-10-27] MEDS ORDERED: DIPHTH,PERTUSS(ACELL),TET 0.5 ML DISP.SYRIN IM ONE (10:00)
[2019-10-27] MEDS ORDERED: SENNOSIDES/DOCUSATE COMBO (SENNA PLUS) TABLET (UD) PO PRN (22:00)
[2019-10-28 09:30] VITALS: BP 112/75; PULSE 86; TEMP 98.3
[2019-10-28] MEDS: FERROUS SO4 325 MG TABLET (FP) PO SCH (09:51)
[2019-10-28] MEDS: PRENATAL VITAMINS W/ FOLIC ACID TABLET (FP) PO SCH (09:51)
--- NOTE | 2019-10-28 11:13 | DS ---
Physical Exam-GLOBAL ACCOUNT MANAGER Vital Signs: Vital Signs Temperature 98.3 F 10/28/19 09:28 Pulse Rate 86 10/28/19 09:28 Respiratory Rate 20 10/28/19 09:28 Blood Pressure 112/75 10/28/19 09:28 O2 Sat by Pulse Oximetry (%) 100 10/26/19 21:00 Constitutional: Yes: No Distress Eyes: Yes: Conjunctiva Clear HENT: Yes: Atraumatic Neck: Yes: Supple Cardiovascular: Yes: Regular Rate and Rhythm Respiratory: Yes: Regular Gastrointestinal: Yes: Normal Bowel Sounds ...Rectal Exam: Yes: WNL Renal/: Yes: WNL Pelvis: Yes: WNL External Genitalia: Yes: Normal Vaginal Exam: Yes: Normal Cervix: Yes: Normal Uterus: Yes: Firm ....Post : Yes: Uterus firm Breast(s): Yes: WNL Musculoskeletal: Yes: WNL Extremities: Yes: WNL Neurological: Yes: Alert, Oriented ...Motor Strength: WNL Psychiatric: Yes: Alert, Oriented Labs: CBC, BMP 10/27/19 07:30 10/26/19 07:10 Delivery - Delivery Vaginal Delivery: Spontaneous Type of Anesthesia: Epidural Episiotomy/Laceration: 1st degree EBL (cc): 400 Delivery, Single - Stages of Labor Date 1st Stage Initiatied: 10/26/19 Time 1st Stage Initiated: 09:00 Date 2nd Stage Initiated: 10/26/19 Time 2nd Stage Initiated: 12:35 Date of Delivery: 10/26/19 Time of Delivery: 12:48 Time Placenta Delivered: 12:53 - Condition of Infant Farmworker 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 Present: No Gender: Male Weight: 8 lb 13 oz Position: Left, OA Total Hours ROM (Hrs/Mins): 4Hrs/28Mins - 1 Minute Total Score: 7 5 Minutes Total Score: 8 - Feeding Plan Initial Plan: Elected not to breastfeed exclusively throughout hospitalization Discharge Summary Problems reviewed: Yes Reason For Visit: LABOR Current Active Problems 38 weeks gestation of (Acute) Pain during labor (Acute) Status post normal vaginal delivery (Acute) Procedures: Principal: Normal spontaneous vaginal delivery Hospital Course: Routine care Health Concerns: None Plan of Treatment: Analgesia as needed F/U with MD in 6 weeks Goals: Resume regular activities in 4-6 weeks Condition: Good - Instructions Diet, Activity, Other Instructions: Regular diet No douching, no sexual intercourse x 6 weeks. F/U with MD in 6 weeks Disposition: HOME - Home Medications Comprehensive Discharge Medication List: Ambulatory Orders Ferrous Sulfate 325 mg PO DAILY 10/26/19 Pnv No.95/Ferrous Fum/Folic AC [ Vitamin Tablet] 1 each PO DAILY 10/26/19
== END 2019-10-28 12:40 | disposition home or self-care (01) | DRG 807 ==
LOC: JDEL 04:45 → JLDR 06:05 → J3W 14:25
PROVIDERS: ADMIT Obstetrics & Gynecology; ATTEND Obstetrics & Gynecology
PROC: 0HQ9XZZ Repair Perineum Skin, External Approach (ICD-10-PCS; principal; 2019-10-26)
PROC: 10E0XZZ Delivery of Products of Conception, External Approach (ICD-10-PCS; 2019-10-26)
DX: O69.81X0 Labor and delivery complicated by cord around neck, without compression, not applicable or unspecified (principal); Z37.0 Single live birth; O70.0 First degree perineal laceration during delivery; Z3A.38 38 weeks gestation of pregnancy
CPT/HCPCS: 36415; 59025; 59409; 80048; 83986-QW; 85025; 85610; 85730; 86593; 86850; 86900; 86901; 90715

== ENCOUNTER 2020-11-01 12:03 | Day surgery (SDC) | payer BC ==
[2020-10-29 11:47] VITALS: BMI 39.4
[2020-11-01] MEDS ORDERED: LIDOCAINE HCL/PF 2% SDV 5ML VIAL ONE (12:13)
[2020-11-01] MEDS ORDERED: PROPOFOL 20 ML ONE ×2 (12:14)
[2020-11-01 12:52] VITALS: TEMP 97.7
[2020-11-01 13:54] VITALS: BP 130/64; PULSE 73
== END 2020-11-01 13:54 | disposition home or self-care (01) ==
LOC: FASU-ENDO 12:03
PROVIDERS: ATTEND Surgery
PROC: 0DJ08ZZ Inspection of Upper Intestinal Tract, Via Natural or Artificial Opening Endoscopic (ICD-10-PCS; principal; 2020-11-01 12:38)
DX: Z01.818 Encounter for other preprocedural examination (principal); E66.01 Morbid (severe) obesity due to excess calories
CPT/HCPCS: 81025

== ENCOUNTER 2021-03-07 11:30 | Inpatient (IN) | payer BC ==
[2021-04-04] MEDS ORDERED: ROCURONIUM BROMIDE 50 MG/5 ML SYRINGE ONE ×2 (07:06→08:51)
[2021-04-04] MEDS ORDERED: MIDAZOLAM HCL 2 MG/2 ML SINGLE DOSE VIAL ONE ×2 (07:06→07:19)
[2021-04-04] MEDS ORDERED: SUCCINYLCHOLINE CHLORIDE 200 MG/10 ML SYRINGE ONE (07:06)
[2021-04-04] MEDS ORDERED: PROPOFOL 20 ML ONE ×2 (07:06→07:08)
[2021-04-04] MEDS ORDERED: fentaNYL CITRATE 250 MCG/5 ML VIAL ONE (07:06)
[2021-04-04] MEDS ORDERED: BUPIVACAINE HCL/PF 0.25% (2.5MG/ML) 10 ML VIAL ONE (07:16)
[2021-04-04] MEDS ORDERED: BUPIVACAINE HCL/PF 0.5% (5 MG/ML) 30 ML VIAL IJ ONE (07:19)
[2021-04-04 07:21] VITALS: BMI 40.6
[2021-04-04] MEDS ORDERED: BUPIVACAINE LIPOSOME/PF (EXPAREL) 266 MG/20 ML VIAL ONE (07:43)
[2021-04-04] MEDS ORDERED: BUPIVACAINE HCL/PF 0.5% (5MG/ML) 10 ML VIAL ONE (07:43)
[2021-04-04 08:03] LABS: HEMATOCRIT 36.7 % (32.4-45.2); HEMOGLOBIN 12.2 GM/dl (10.7-15.3); MCH 32.5 pg (25.7-33.7); MCHC 33.3 g/dl (32.0-36.0); MEAN CELL VOLUME 97.6 fl (80-96); MEAN PLT VOLUME 8.9 fl (7.5-11.1); PLATELET COUNT 221 10^3/uL (134-434); RBC 3.76 M/mm3 (3.60-5.2); RDW 13.5 % (11.6-15.6); WHITE BLOOD COUNT 3.2 K/mm3 (4.0-10.8)
[2021-04-04 08:10] LABS: ALBUMIN 3.6 g/dl (3.4-5.0); BILIRUBIN,TOTAL 1.4 mg/dl (0.2-1); CREATININE 0.5 mg/dl (0.55-1.3); TOT PROT 6.3 g/dl (6.4-8.2)
[2021-04-04 08:11] LABS: INR 1.04 (0.82-1.09); PROTHROMBIN TIME (PATIENT) 11.6 SEC (10.2-13.0)
[2021-04-04] MEDS ORDERED: HYDROmorphone HCL/PF 1 MG/ML VIAL ONE (08:41)
[2021-04-04] MEDS ORDERED: NEOSTIGMINE METHYLSULFATE 0.5 MG/1 ML - 10 ML MDV ONE (09:49)
[2021-04-04] MEDS ORDERED: ceFAZolin SODIUM 1 GM VIAL ONE (10:02)
[2021-04-04] MEDS ORDERED: ONDANSETRON 4 MG/2 ML VIAL ONE (10:02)
[2021-04-04] MEDS ORDERED: DEXAMETHASONE SOD PHOSPHATE 4 MG/1 ML VIAL ONE (10:02)
[2021-04-04] MEDS ORDERED: GLYCOPYRROLATE 0.2 MG/1 ML VIAL ONE (10:02)
[2021-04-04] MEDS ORDERED: KETOROLAC TROMETHAMINE 30 MG/1 ML VIAL ONE (10:02)
[2021-04-04] MEDS ORDERED: BUPIVACAINE HCL/PF 0.25% (2.5MG/ML) 10 ML VIAL IJ ONE ×2 (10:17)
[2021-04-04] MEDS ORDERED: FAMOTIDINE 20 MG/50 ML IVPB 20 MG/50 ML MG IVPB ONE (10:26)
[2021-04-04] MEDS ORDERED: ACETAMINOPHEN INJECTION 100 ML IVPB ONE (10:30)
[2021-04-04] MEDS ORDERED: ONDANSETRON 4 MG/2 ML VIAL IVPUSH PRN (10:47)
[2021-04-04 11:14] LABS: HEMATOCRIT 40.3 % (32.4-45.2); HEMOGLOBIN 13.3 GM/dl (10.7-15.3); MCH 33.6 pg (25.7-33.7); MCHC 32.9 g/dl (32.0-36.0); MEAN CELL VOLUME 102.2 fl (80-96); MEAN PLT VOLUME 9.8 fl (7.5-11.1); PLATELET COUNT 172 10^3/uL (134-434); RBC 3.95 M/mm3 (3.60-5.2); RDW 13.4 % (11.6-15.6); WHITE BLOOD COUNT 8.3 K/mm3 (4.0-10.8)
[2021-04-04 11:28] LABS: ALBUMIN 3.7 g/dl (3.4-5.0); BILIRUBIN,TOTAL 0.8 mg/dl (0.2-1); CALCIUM 8.7 mg/dl (8.5-10); CREATININE 0.6 mg/dl (0.55-1.3); TOT PROT 6.5 g/dl (6.4-8.2)
[2021-04-04] MEDS: ACETAMINOPHEN 1000 MG/100 ML VIAL (NON FORMULARY) IVPB SCH ×3 (12:20→22:17)
[2021-04-04] MEDS: HYDROmorphone HCL/PF 1 MG/ML VIAL IVPB PRN ×2 (12:20→20:10)
[2021-04-04] MEDS: METOCLOPRAMIDE HCL INJECTION 10 MG/2 ML VIAL IVPUSH SCH ×3 (12:21→21:47)
[2021-04-04] MEDS: ONDANSETRON 4 MG/2 ML VIAL IVPUSH SCH ×4 (12:21→21:49)
[2021-04-04] MEDS: SODIUM CHLORIDE 1,000 ML IV SCH (12:33)
[2021-04-04] MEDS: LACTATED RINGERS SOLUTION 1,000 ML IV SCH (18:33)
[2021-04-04] MEDS: FAMOTIDINE 20 MG/50 ML IVPB 20 MG/50 ML MG IVPB SCH (21:43)
[2021-04-04] MEDS: ENOXAPARIN NA (PORCINE) 40 MG/0.4 ML DISP.SYRIN SQ SCH (21:46)
[2021-04-05] MEDS: ONDANSETRON 4 MG/2 ML VIAL IVPUSH SCH ×4 (01:40→15:17)
[2021-04-05] MEDS: ACETAMINOPHEN 1000 MG/100 ML VIAL (NON FORMULARY) IVPB SCH (04:19)
[2021-04-05] MEDS: METOCLOPRAMIDE HCL INJECTION 10 MG/2 ML VIAL IVPUSH SCH ×2 (04:20→11:05)
[2021-04-05 07:54] LABS: HEMOGLOBIN 11.3 GM/dl (10.7-15.3); MCH 32.6 pg (25.7-33.7); MCHC 33.1 g/dl (32.0-36.0); MEAN CELL VOLUME 98.5 fl (80-96); MEAN PLT VOLUME 9.5 fl (7.5-11.1); PLATELET COUNT 196 10^3/uL (134-434); RBC 3.45 M/mm3 (3.60-5.2); RDW 13.4 % (11.6-15.6); WHITE BLOOD COUNT 5.6 K/mm3 (4.0-10.8)
[2021-04-05 08:11] LABS: ALBUMIN 3.3 g/dl (3.4-5.0); BILIRUBIN,TOTAL 1.8 mg/dl (0.2-1); CALCIUM 8.4 mg/dl (8.5-10); CREATININE 0.5 mg/dl (0.55-1.3); TOT PROT 6.1 g/dl (6.4-8.2)
[2021-04-05] MEDS: HYDROmorphone HCL/PF 1 MG/ML VIAL IVPB PRN (09:11)
[2021-04-05] MEDS: ENOXAPARIN NA (PORCINE) 40 MG/0.4 ML DISP.SYRIN SQ SCH (09:12)
[2021-04-05] MEDS: FAMOTIDINE 20 MG/50 ML IVPB 20 MG/50 ML MG IVPB SCH (09:12)
[2021-04-05] MEDS: SODIUM CHLORIDE 1,000 ML IV SCH (11:05)
[2021-04-05] MEDS: LACTATED RINGERS SOLUTION 1,000 ML IV SCH (14:12)
[2021-04-05 14:46] VITALS: BP 119/72; PULSE 70; TEMP 98
== END 2021-04-05 16:36 | disposition home or self-care (01) | DRG 621 ==
LOC: FM/S 04-04 06:18
PROVIDERS: ADMIT Surgery; ATTEND Surgery
PROC: 0DJ04ZZ Inspection of Upper Intestinal Tract, Percutaneous Endoscopic Approach (ICD-10-PCS; 2021-04-04)
PROC: 0FB23ZX Excision of Left Lobe Liver, Percutaneous Approach, Diagnostic (ICD-10-PCS; 2021-04-04)
PROC: 0DB64Z3 Excision of Stomach, Percutaneous Endoscopic Approach, Vertical (ICD-10-PCS; principal; 2021-04-04 08:43)
PROC: 0DNW3ZZ Release Peritoneum, Percutaneous Approach (ICD-10-PCS; 2021-04-04 08:43)
DX: E66.01 Morbid (severe) obesity due to excess calories (principal); Z68.41 Body mass index [BMI] 40.0-44.9, adult; R16.0 Hepatomegaly, not elsewhere classified; N73.6 Female pelvic peritoneal adhesions (postinfective)
CPT/HCPCS: 36415; 74240-TC-FY; 80053; 81025; 85027; 85610; 85730; 88305-TC; 94760; J0131

== ENCOUNTER 2023-05-07 22:28 | Emergency (ER) | payer BC ==
[2023-05-07 22:37] VITALS: BP 139/84; PULSE 82; RESP 20; TEMP 97.6; BMI 34.7
[2023-05-08 00:19] LABS: BASO % 1.2 % (0-2.0); EOS % 1.7 % (0-4.5); HEMATOCRIT 32.4 % (32.4-45.2); HEMOGLOBIN 10.8 GM/dL (10.7-15.3); LYMPH % 38.7 % (8-40); MCH 30.5 pg (25.7-33.7); MCHC 33.3 g/dl (32.0-36.0); MEAN CELL VOLUME 91.6 fl (80-96); MEAN PLT VOLUME 8.5 fl (7.5-11.1); MONO % 10.7 % (3.8-10.2); NEUT % 47.7 % (42.8-82.8); PLATELET COUNT 343 10^3/uL (134-434); RBC 3.53 M/mm3 (3.60-5.2); RDW 16.7 % (11.6-15.6); WHITE BLOOD COUNT 5.4 K/mm3 (4.0-10.0)
[2023-05-08 00:29] LABS: INR 0.97 (0.83-1.09); PROTHROMBIN TIME (PATIENT) 11.2 SEC (9.7-13.0)
[2023-05-08 00:31] LABS: ACTIVATED PTT 31.2 SECONDS (25.2-36.5)
[2023-05-08 00:33] LABS: CHLORIDE 107 mmol/L (98-107); SODIUM 138 mmol/L (136-145)
[2023-05-08 00:36] LABS: ALBUMIN 3.4 g/dl (3.4-5.0); CALCIUM 8.5 mg/dL (8.5-10.1); CO2 26 mmol/L (21-32); GLUCOSE,RANDOM 87 mg/dL (74-106)
[2023-05-08 00:40] LABS: CREATININE 0.7 mg/dL (0.55-1.3); SGOT/AST 65 U/L (15-37); SGPT/ALT 22 U/L (13-61)
[2023-05-08 00:41] LABS: BILIRUBIN,TOTAL 0.8 mg/dL (0.2-1); TOT PROT 7.5 g/dl (6.4-8.2)
[2023-05-08 00:42] LABS: ALK PHOS 40 U/L (45-117)
[2023-05-08 00:48] LABS: ANION GAP 5 MMOL/L (8-16); POTASSIUM 6.6 mmol/L (3.5-5.1)
[2023-05-08 03:01] LABS: POTASSIUM 4.2 mmol/L (3.5-5.1)
[2023-05-08 03:02] LABS: CALCIUM 8.3 mg/dL (8.5-10.1)
[2023-05-08 03:03] LABS: BLOOD UREA NITROGEN 7.2 mg/dL (7-18)
[2023-05-08 03:06] LABS: CREATININE 0.6 mg/dL (0.55-1.3)
== END 2023-05-08 03:35 | disposition home or self-care (01) ==
LOC: JER 22:28
DX: R07.89 Other chest pain (principal); R20.2 Paresthesia of skin; M54.30 Sciatica, unspecified side; N63.10 Unspecified lump in the right breast, unspecified quadrant
CPT/HCPCS: 36415; 71045-TC-FY; 71275-TC; 80048; 80053; 82962; 84484; 84703; 85025; 85610; 85730; 93005; 93010; 93970-TC; 99285-25; Q9967